=== PATIENT | male | born 2000 | race Two or more races ===

== ENCOUNTER 2022-10-25 08:37 | Emergency (ER) | payer OTHER ==
[~2022-10-25] VITALS: Ht 177.8 cm; Wt 135.1 kg
[2022-10-25 09:47] VITALS: BP 131/67
[2022-10-25] MEDS ORDERED: CYCL-837 PO (10:53)
[2022-10-25] MEDS ORDERED: IBUP800T26 PO (10:53)
== END 2022-10-25 11:05 | disposition home or self-care (01) ==
LOC: ER 08:37
DX: S70.02XA Contusion of left hip, initial encounter (principal); S30.0XXA Contusion of lower back and pelvis, initial encounter; W08.XXXA Fall from other furniture, initial encounter; Y93.89 Activity, other specified; Y92.89 Other specified places as the place of occurrence of the external cause; Y99.8 Other external cause status
CPT/HCPCS: 72110; 73502